=== PATIENT | male | born 1955 | race Caucasian/White ===

== ENCOUNTER 2017-02-14 09:26 | Day surgery (SDC) | payer OTHER ==
[~2017-02-14 09:26] MED LIST: CHONDR SULF 4%/HYALURONATE 3% 0.5 ML SYRINGE IO ONE; CYCLOPENTOLATE HCL 1% 40 GTTS/2 ML BOT SOLN.DROP OS SCH; D5 1/2NS 500 ML IV SCH; EPINEPHRINE 0.5 MG in BALANCED SALT IRRIG SOLN NO.2 500 ML IO ONE; FLURBIPROFEN SODIUM 0.03% 50 GTTS/2.5 ML BOT SOLN.DROP OS SCH; LIDOCAINE 4% (PRES FREE) 1 ML, BALANCED SALT IRRIG SOLN COMB2 3 ML, EPINEPHRINE 1.25 MG IO ONE; NEO/POLYMYX B SULF/DEXAMETH OP OINT 14 APPLIC/3.5 G TUBE OS ONE; PHENYLEPHRINE 2.5% OPHTH 40 GTTS/2 ML BOT SOLN.DROP OS SCH; PHENYLEPHRINE HCL 10% 100 GTTS/5 ML BOT SOLN.DROP OS PRN; PROPARACAINE HCL 0.5% 300 GTTS/BOT SOLN.DROP OS ONE
[2017-02-14] MEDS ORDERED: IV START KIT ONE (10:18)
[2017-02-14] MEDS ORDERED: SODIUM CHLORIDE 0.9% 500 ML ONE (10:19)
[2017-02-14] MEDS ORDERED: MIDAZOLAM HCL 1 MG/ML 2ML VIAL ONE ×3 (11:01→11:30)
[2017-02-14] MEDS ORDERED: FENTANYL 100 MCG/2 ML VIAL ONE (11:33)
--- NOTE | 2017-02-15 09:19 | OP ---
FRANC [facility] [place] [id number] DATE OF PROCEDURE: 02/14/2017 PREOPERATIVE DIAGNOSIS: Cataract OS. POSTOPERATIVE DIAGNOSIS: Pseudophakia OS. PROCEDURE: PHACOEMULSIFICATION AND POSTERIOR CHAMBER INTRAOCULAR LENS OS. SURGEON: Dr. Garcia Feliciano ANESTHESIA: MAC with topical. COMPLICATIONS: None. DESCRIPTION OF PROCEDURE: After informed consent was obtained, the patient was brought back to the operating room and laid in supine position. Cardiac monitors and IV access were obtained by nursing and the patient underwent IV sedation without complication. Once adequate sedation was in place, the patient was prepped and draped in the usual sterile fashion and a lid speculum was placed. Attention was directed to the limbus at 6 o'clock where a side port was created using a 15-degree blade. Upon entering the anterior chamber, nonpreserved lidocaine was placed intracamerally, followed by reinflating the anterior chamber with viscoelastic. A clear corneal incision was then created at the limbus at 3 o'clock using a grooved blade, followed by a 2.4 mm Keratome blade. Upon entering the anterior chamber, a curvilinear capsulorrhexis was initiated and completed with Utrata forceps. A balanced salt solution (BSS) was used to hydrodissect the cataract and the cataract was removed with the phacoemulsification unit and a phaco-chop technique. The remaining cortical remnants were removed with the irrigation and aspiration unit. The anterior chamber and capsular bag were reinflated with viscoelastic. The intraocular lens, SN60WF, 17.0 lens was removed from packaging and found to be without defect. This was placed into the injector and was injected into the capsular bag without difficulty. The posterior haptic was rotated into position a Kuglen hook and the lens was noted to be well-centered. The remaining viscoelastic was then removed with the irrigation and aspiration unit. The anterior chamber was reinflated with a balanced salt solution (BSS). The wounds were inspected and found to be watertight. Maxitrol ointment was placed in the eye, followed by removal of the lid speculum, and a shield placed. The patient left the operating room in good condition. There were no complications [facility] #[id number]
== END 2017-02-14 12:30 | disposition home or self-care (01) ==
LOC: SDC 09:26
PROVIDERS: ATTEND Ophthalmology
PROC: 08RK3JZ Replacement of Left Lens with Synthetic Substitute, Percutaneous Approach (ICD-10-PCS; principal; 2017-02-14)
DX: H26.9 Unspecified cataract (principal)
CPT/HCPCS: 66984; J3010; J2250 ×3; J7040; J0171 ×2; V2630